=== PATIENT | female | born 1985 | race Caucasian/White ===

== ENCOUNTER 2019-08-25 10:46 | Outpatient (CLI) | payer OTHER, SELFPAY ==
[2019-08-25 11:07] LABS: Hematocrit 38.8 % (37.0-47.0); Hemoglobin 12.3 g/dL (12.0-15.0); Mean Corpuscular HGB Conc 31.7 g/dl (32-36); Mean Corpuscular Hemoglobin 27.8 pg (26-34); Mean Corpuscular Volume 87.8 fl (80-100); Mean Platelet Volume 11.1 fl (7.4-10.4); Platelet Count Result 303 k/mm3 (150-375); Red Blood Count 4.42 M/mm3 (4.2-5.4); Red Cell Distribution Width 13.7 % (11.5-14.5); White Blood Count 7.9 K/mm3 (4.5-10.0)
[2019-08-25 11:42] LABS: Iron 68 ug/dL (37-170)
[2019-08-25 12:13] LABS: Alanine Aminotransferase 16 U/L (4-35); Albumin Level 4.5 g/dL (3.5-5.1); Alkaline Phosphatase 68 U/L (38-126); Aspartate Amino Transferase 25 U/L (14-36); Bilirubin,Total 0.5 mg/dL (0.2-1.3); Blood Urea Nitrogen 10 mg/dL (7-17); Calcium 9.2 mg/dL (8.4-10.2); Carbon Dioxide 27 mmol/L (22-30); Chloride 100 mmol/L (98-107); Estimated Glomerular Filt Rate > 60; Glucose 88 mg/dL (65-105); Potassium 4.2 mmol/L (3.4-5.0); Sodium 139 mmol/L (137-145)
[2019-08-25 13:32] LABS: Folic Acid > 20.0 ng/mL (2.76->20)
[2019-08-25 14:24] LABS: Free T4 Free Thyroxine 1.08 ng/mL (0.78-2.19)
== END 2019-08-25 10:47 | disposition home or self-care (01) ==
LOC: ANHLAB 10:49
PROVIDERS: PCP Family Medicine; Visit Provider Family Medicine
DX: R53.83 Other fatigue (principal); E03.9 Hypothyroidism, unspecified
CPT/HCPCS: 36415; 80053; 82607; 82746; 83540; 84439; 84443; 85027

== ENCOUNTER → 2020-08-10 09:30 | Outpatient (CLI) | payer OTHER, SELFPAY ==
[2020-08-10 21:18] LABS: SARS-CoV-2 RNA PCR Negative
== END ==
PROVIDERS: PCP Family Medicine; Visit Provider Family Medicine
DX: Z20.822 Contact with and (suspected) exposure to COVID-19 (principal); J01.00 Acute maxillary sinusitis, unspecified
CPT/HCPCS: C9803; U0003; U0005

== ENCOUNTER → 2021-03-19 00:01 | Outpatient (CLI) | payer OTHER, SELFPAY ==
[2021-03-19 18:04] LABS: SARS-CoV-2 RNA PCR Negative
== END ==
PROVIDERS: PCP Family Medicine; Visit Provider Family Medicine
DX: R68.89 Other general symptoms and signs (principal); Z20.822 Contact with and (suspected) exposure to COVID-19
CPT/HCPCS: C9803; U0003; U0005

== ENCOUNTER → 2021-03-25 03:09 | Outpatient (CLI) | payer OTHER, SELFPAY ==
[2021-03-25 18:35] LABS: SARS-CoV-2 RNA PCR Negative
== END ==
PROVIDERS: PCP Family Medicine; Visit Provider Family Medicine
DX: Z20.822 Contact with and (suspected) exposure to COVID-19 (principal)
CPT/HCPCS: C9803; U0003; U0005

== ENCOUNTER → 2021-04-06 03:06 | Outpatient (CLI) | payer OTHER, SELFPAY ==
[2021-04-06 19:23] LABS: SARS-CoV-2 RNA PCR Negative
== END ==
PROVIDERS: PCP Family Medicine; Visit Provider Family Medicine
DX: Z20.822 Contact with and (suspected) exposure to COVID-19 (principal)
CPT/HCPCS: C9803; U0003; U0005

== ENCOUNTER 2021-04-14 08:55 | Outpatient (CLI) | payer OTHER, SELFPAY ==
--- NOTE | ~2021-04-14 | MM_ITS ---
MM post biopsy invasive RT DATE: 04/14/2021 13:05 INDICATION: Status post ultrasound-guided biopsy of abnormal mammographic and ultrasound findings in the lower outer quadrant of the right breast TECHNIQUE: Digital MLO and CC exposures following ultrasound-guided biopsy with biopsy marker placeme nt COMPARISON: None FINDINGS: The biopsy marker is present centrally within the area of abnormal density in the lower out er quadrant of the right breast IMPRESSION: Ultrasound-guided biopsy of lower outer quadrant right breast abnormality Reviewed, dictated and finalized at [facility]. Reviewed, dictated and finalized at location C. IMPRESSION: Ultrasound-guided biopsy of lower outer quadrant right breast abnor mality
--- NOTE | ~2021-04-14 | US_ITS ---
EXAMINATION: US GUIDED NEEDLE BIOPSY DATE: 04/14/2021 13:40 CDT INDICATION: Abnormal mammographic and sonographic findings at lower outer quadrant, 7:00, right breas t TECHNIQUE AND FINDINGS: The risks and potential benefits of the procedure were discussed with the patient, and written inform ed consent was obtained. Timeout procedure was performed. After sterile preparation of the right luis st, 1% lidocaine was utilized for local anesthesia. A 14G spring-loaded biopsy gun needle was advanced to the edge of the region of interest from a media l approach utilizing sonographic guidance. A total of three tissue core samples were obtained throug h the lesion. An Inrad tissue marker clip was then placed at the biopsy site. Hemostasis was achieve d. A sterile bandage was applied. The patient tolerated procedure well and there was no evidence of immediate complication. The patien t was given verbal instructions prior to departing from the department. A two view mammogram was perf ormed to document tissue marker clip placement. The tissue samples were submitted to surgical patholo gy for histologic analysis. IMPRESSION: 1. Successful ultrasound guided biopsy of right lower outer quadrant breast with biopsy marker place ment. Please refer to pathology report for histologic analysis. Reviewed, dictated and finalized at [facility]. Reviewed, dictated and finalized at location C. IMPRESSION: 1. Successful ultrasound guided biopsy of right lower outer quadrant breast wi th biopsy marker placement. Please refer to pathology report for histologic anayeli lysis.
--- NOTE | ~2021-04-14 | MMUS_ITS ---
EXAMINATION: MM diagnostic irais BI w taty, US breast RT limited HISTORY: Right breast lump TECHNIQUE: ML, MLO and craniocaudal 3-D tomosynthesis images of both breasts were performed [facility] were [facility]. CAD analysis was submitted and interpreted. High resolution targeted right breast ultrasound at the area of clinical complaint was performed. COMPARISON: 06/12/2019 bilateral diagnostic mammography and limited right breast ultrasound BREAST PARENCHYMAL COMPOSITION: The breasts are heterogeneously dense, which may obscure small masses . FINDINGS: MAMMOGRAPHIC FINDINGS: There is interval asymmetric ill-defined increased density involving a large area of approximately 5 x 5.5 cm dimension in the lower outer right breast. No suspicious mass, architectural distortion, malignant calcification, skin thickening or retraction is noted elsewhere in either breast. ULTRASOUND: Targeted ultrasound at the area of complaint of right breast mass at 7:00 7 cm from the nipple reveal s a large area of irregular ill-defined dense tissue with posterior shadowing IMPRESSION: 1. Suspicious large area of asymmetric increased mammographic density and irregular heterogeneous ech otexture with posterior shadowing in the lower outer quadrant of the right breast 2. Ultrasound-guided biopsy is recommended BI-RADS category 4, suspicious findings. Dr. Tripathi telephoned the report and ultrasound-guided biopsy recommendation of the right breast on at [address] Summer Kuhn Reviewed, dictated and finalized at location A. IMPRESSION: 1. Suspicious large area of asymmetric increased mammographic density and irreg ular heterogeneous echotexture with posterior shadowing in the lower outer quad rant of the right breast 2. Ultrasound-guided biopsy is recommended BI-RADS category 4, suspicious findings. Dr. Tripathi telephoned the report and ultrasound-guided biopsy recommendation of t he right breast on 04/14/2021 [address] Summer Kuhn IMPRESSION: 1. Suspicious large area of asymmetric increased mammographic density and irreg ular heterogeneous echotexture with posterior shadowing in the lower outer quad rant of the right breast 2. Ultrasound-guided biopsy is recommended BI-RADS category 4, suspicious findings. Dr. Tripathi telephoned the report and ultrasound-guided biopsy recommendation of t he right breast on 04/14/20[address] Barraza' nurse Hattie
== END 2021-04-14 08:56 | disposition home or self-care (01) ==
PROVIDERS: PCP Family Medicine; Visit Provider Family Medicine
DX: N63.13 Unspecified lump in the right breast, lower outer quadrant (principal); N60.11 Diffuse cystic mastopathy of right breast; N61.1 Abscess of the breast and nipple
CPT/HCPCS: 19083; 76642; 77062; 77066; 88305; A4648; G0279

== ENCOUNTER 2021-04-19 00:38 | Day surgery (SDC) | payer OTHER, SELFPAY ==
[2021-04-18 11:10] VITALS: BMI 32.3
[2021-04-19] MEDS: LACTATED RINGERS 1,000 ML 30 ML IV CONT (13:06)
[2021-04-19 13:09] VITALS: BP 112/69; PULSE 110; RESP 16; TEMP 36.8; O2SAT 100
--- NOTE | 2021-04-19 13:11 | WPDANESEPPF ---
Anes - Initial Pre Proc Eval Procedure: Operation Date: 04/19/21 13:30 Proposed Procedures p Complex Incision and Drainage Right Breast Abscess - Quynh Dudley MD Date/Time: 04/19/21 13:11 Surgeon: Quynh Dudley MD Pre Op Diagnosis: right breast abscess Patient Data Age: 35 Gender: F Height: 1.63 m Weight: 85.28 kg Allergies Allergy/AdvReac Type Severity Reaction Status Date / Time cephalexin Allergy Unknown Hives Verified 04/19/21 13:13 Home Medications Medication Instructions Recorded Confirmed Type levothyroxine 100 mcg tablet 100 mcg PO DAILY #30 tablet 04/22/20 04/19/21 Rx clindamycin HCl 300 mg capsule 300 mg PO Q6H #40 cap 04/15/21 04/19/21 Rx multivitamin 1 tablet PO DAILY 04/18/21 04/19/21 History Patient hx anesthesia problems: none Family hx anesthesia problems: none Results Review: All pre-operative results and documents have been reviewed as part of the pre-operative evaluation. [facility] Past Medical History Medical History (Updated 04/19/21 @ 13:12 by José Miguel Rodriguez DO) Acute non-recurrent maxillary sinusitis Breast pain, right Chigger infestation Encounter for screening for COVID-19 Exposure to COVID-19 virus Fatigue Hypothyroidism, unspecified Iron deficiency anemia, unspecified Mass of lower outer quadrant of right breast (04/08/21) Stat ultrasound and mammogram suspicious mass 5 x 5.5 cm. Biopsy was negative for malignancy and suggestive of abscess 04/14/2021 Mastitis of right breast unrelated to of (04/04/21) Vitamin B12 deficiency anemia Family History Family History (Updated 10/23/18 @ 10:01 by DOCTOR UNKNOWN) Mother Family history of thyroid disease Patient's mother is in good health Grandparent Diabetes mellitus Acute myocardial infarction Carcinoma of colon Social History Social History Smoking status: Never smoker Alcohol intake: never Substance use: never Substance use type: does not use Additional living arrangements comments: CHILDREN Spiritual care concerns: No Anes - Eval Final PreProcedure Day of Procedure 04/19/21 13:11 Patient weight: obese Heart: regular rate and rhythm Lungs: clear to auscultation and normal air movement Airway: Mallampati scale class II Neurological: alert and oriented Last oral intake: >/= 8 hours ASA classification: II Emergent: no Anesthetic plan: proceed Anesthesia type and monitoring: general LMA and standard monitoring Results Review: All pre-operative results and documents have been reviewed as part of the pre-operative evaluation. Informed Consent: The patient's anesthetic plan and its attendant risks and benefits were discussed with the patient/family/POA. Questions were solicited and answers provided to the satisfaction of the patient/family/POA.
--- NOTE | 2021-04-19 13:31 | WPDHPUPDATE1 ---
History and Physical Update Update Date/Time: 04/19/21 13:31 History and Physical has been reviewed, including an updated exam of the patient. There are NO changes in the patient's condition. Risks, benefits, and alternatives have been discussed and questions answered. Patient agrees to proceed with procedure.
[2021-04-19] MEDS: CLINDAMYCIN 900 MG/D5W 50 ML 900 MG/50 ML PIGGYBACK 50 MG IVPB (14:17)
[2021-04-19] MEDS: LIDO 2%/EPINEPHRINE 1:100,000 20 ML VIAL INFILTRATE (14:37)
--- NOTE | 2021-04-19 14:45 | W.PM.PROC2 ---
Procedure Note - Detailed Date of Procedure 04/19/21 Pre-op Diagnosis right breast abscess, severe mastitis Post-op Diagnosis same Procedure Performed complex incision and drainage right breast abscess measuring approximately 7 x 8 cm Surgeon Quynh Dudley MD Anesthesia MAC and local Indications 35-year-old female presenting with right breast abscess, severe right breast mastitis Findings right breast abscess measuring approximately 7 x 8 cm Description of Procedure The patient was taken to the operating room and placed in the supine position. After adequate induction of MAC anesthesia, the patient was prepped and draped in the normal sterile fashion. A time-out was then done to verify the patient's identity, as well as the procedure being performed. I then localized the area in the right breast overlying the abscess. I then made a incision over the most fluctuant area. This was done approximately at the 7 o'clock position of the breast inferior to the nipple-areolar complex. Upon getting into the breast tissue, there was noted to be severe mastitis and liquified fat. Using blunt dissection, was able to dissect through this area and an abscess cavity was encountered. A copious amount of purulent drainage was noted. This abscess cavity was noted to be approximately 7 cm deep. The cavity itself measured approximately 8 cm. Once I had completely drain this abscess and broke up all loculations, I copiously irrigated the area. No other pathology was noted. I then localized the cavity. The cavity was then packed with 1 in iodoform. Sterile dressing was then placed on the wound. The patient tolerated the procedure well and was alert and awake in the operating room postop. She will be sent to the recovery room in stable condition. Estimated Blood Loss 5 Drains No Packing Yes Pathology none sent Complications No immediate complications Condition stable Disposition PACU
[2021-04-19 14:49] VITALS: BP 96/61; PULSE 100; RESP 12; O2SAT 100
[2021-04-19] MEDS: oxyCODONE HCL (*CRX) 5 MG TAB IR PO (15:12)
[2021-04-19 15:15] VITALS: BP 104/71; PULSE 91; RESP 16
[2021-04-19 15:45] VITALS: BP 109/71; PULSE 86; RESP 18
== END 2021-04-19 15:50 | disposition home or self-care (01) ==
PROVIDERS: PCP Family Medicine; Visit Provider Surgery
PROC: (CPT 19020; principal; 2021-04-19 13:30)
DX: N61.1 Abscess of the breast and nipple (principal); D50.9 Iron deficiency anemia, unspecified; E03.9 Hypothyroidism, unspecified; D51.3 Other dietary vitamin B12 deficiency anemia; E66.9 Obesity, unspecified; Z68.32 Body mass index [BMI] 32.0-32.9, adult
CPT/HCPCS: 19020; 87426; A9270; C9803; J1100; J2250; J2704; J3010; J7120

== ENCOUNTER 2021-04-19 11:03 | Outpatient (CLI) | payer OTHER, SELFPAY ==
[2021-04-19 12:32] LABS: EDCOVIDSCREEN Negative (Negative)
== END 2021-04-19 11:04 | disposition home or self-care (01) ==
LOC: ANHSURGERY 11:05
PROVIDERS: PCP Family Medicine; Visit Provider Surgery
DX: Z01.818 Encounter for other preprocedural examination (principal); Z20.822 Contact with and (suspected) exposure to COVID-19
CPT/HCPCS: 87426; C9803

== ENCOUNTER 2021-04-25 09:52 | Outpatient (CLI) | payer OTHER, SELFPAY ==
[2021-04-25 10:27] LABS: D Dimer 1.77 ug/mL (<0.48)
[2021-04-25 11:34] LABS: LDL Cholesterol Direct 118 mg/dL
[2021-04-25 12:07] LABS: Basophils Absolute Auto 0.1 K/mm3 (0.0-0.1); Basophils Percent Auto 0.6 % (0.2-1.2); Eosinophils Absolute Auto 0.4 K/mm3 (0-0.3); Eosinophils Percent Auto 3.8 % (0-4.4); Hematocrit 34.3 % (37.0-47.0); Hemoglobin 11.1 g/dL (12.0-15.0); Lymphocytes Absolute Auto 2.02 K/mm3 (0.9-3.2); Lymphocytes Percent Auto 20.4 % (18.3-44.2); Mean Corpuscular HGB Conc 32.4 g/dl (32-36); Mean Corpuscular Hemoglobin 26.9 pg (26-34); Mean Corpuscular Volume 83.3 fl (80-100); Mean Platelet Volume 11.1 fl (7.4-10.4); Monocytes Absolute Auto 0.6 K/mm3 (0.1-0.6); Monocytes Percent Auto 6.2 % (2.6-8.5); Neutrophils Absolute Auto 6.7 K/mm3 (1.3-6.7); Platelet Count Result 464 k/mm3 (150-375); Red Blood Count 4.12 M/mm3 (4.2-5.4); Red Cell Distribution Width 14.4 % (11.5-14.5); White Blood Count 9.9 K/mm3 (4.5-10.0)
[2021-04-25 12:11] LABS: Erythrocyte Sedimentation Rate 60 mm/hr (0-20)
[2021-04-25 13:01] LABS: Iron 46 ug/dL (37-170); Percent Iron Saturation 13 % (20-50)
[2021-04-25 14:24] LABS: Alanine Aminotransferase 20 U/L (4-35); Albumin Level 4.4 g/dL (3.5-5.1); Alkaline Phosphatase 77 U/L (38-126); Anion Gap 9 mmol/L (8-16); Aspartate Amino Transferase 21 U/L (14-36); Bilirubin,Total 0.2 mg/dL (0.2-1.3); Blood Urea Nitrogen 7 mg/dL (7-17); Calcium 9.9 mg/dL (8.4-10.2); Carbon Dioxide 31 mmol/L (22-30); Chloride 99 mmol/L (98-107); Cholesterol 196 mg/dL (0-200); Estimated Glomerular Filt Rate > 60; Glucose 102 mg/dL (65-110); HDL Direct 33 mg/dL; Potassium 4.2 mmol/L (3.4-5.0); Sodium 139 mmol/L (137-145); Triglycerides 117 mg/dL (<150)
[2021-04-25 21:26] LABS: Creatine Kinase 42 U/L (30-135)
[2021-04-25 21:29] LABS: Folic Acid 19.8 ng/mL (2.76->20)
[2021-04-29 11:43] LABS: CRP, High Sensitivity >10.0 mg/L (***)
== END 2021-04-25 09:53 | disposition home or self-care (01) ==
PROVIDERS: PCP Family Medicine; Visit Provider Family Medicine
DX: N61.1 Abscess of the breast and nipple (principal); D51.9 Vitamin B12 deficiency anemia, unspecified; D50.9 Iron deficiency anemia, unspecified; E03.9 Hypothyroidism, unspecified; E78.2 Mixed hyperlipidemia; M79.669 Pain in unspecified lower leg
CPT/HCPCS: 36415; 76642; 80053; 80061; 82550; 82607; 82728; 82746; 83540; 83550; 83735; 84443; 85025; 85380; 85652; 86141; 87070; 87077; 87186; 87205

== ENCOUNTER 2021-04-25 11:40 | Outpatient (CLI) | payer OTHER, SELFPAY ==
--- NOTE | ~2021-04-25 | US_ITS ---
US breast RT limited 04/25/2021 12:21 Indication: Right breast abscess. Procedure: High-resolution ultrasound of the right breast in the area of clinical concern laterally. Comparison: 04/14/2021 Findings: There is a complex heterogeneous area of soft tissue in the area of palpable concern with e sebastian involving the interstitium. No discrete drainable fluid collection is identified to suggest absc ess. Impression: 1: Complex heterogeneous breast tissue in the area of clinical concern, consistent with phlegmonous c hange. No discrete drainable fluid collection to suggest abscess. BI-RADS CATEGORY 3-PROBABLY BENIGN FINDING RECOMMENDATION: Recommend follow-up ultrasound in 1-2 months following appropriate clinical therapy. Reviewed, dictated and finalized at location A. Impression: 1: Complex heterogeneous breast tissue in the area of clinical concern, consist ent with phlegmonous change. No discrete drainable fluid collection to suggest abscess. BI-RADS CATEGORY 3-PROBABLY BENIGN FINDING RECOMMENDATION: Recommend follow-up ultrasound in 1-2 months following appropri ate clinical therapy.
== END 2021-04-25 11:41 | disposition home or self-care (01) ==
LOC: ANHIMG 11:46
PROVIDERS: PCP Family Medicine; Visit Provider Family Medicine
DX: N61.1 Abscess of the breast and nipple (principal); R92.8 Other abnormal and inconclusive findings on diagnostic imaging of breast
CPT/HCPCS: 76642

== ENCOUNTER → 2021-04-26 08:32 | Outpatient (CLI) | payer OTHER, SELFPAY ==
[2021-04-26 18:29] LABS: SARS-CoV-2 RNA PCR Negative
== END ==
PROVIDERS: PCP Family Medicine; Visit Provider Family Medicine
DX: R68.89 Other general symptoms and signs (principal); Z20.822 Contact with and (suspected) exposure to COVID-19
CPT/HCPCS: C9803; U0003; U0005

== ENCOUNTER → 2021-05-05 03:05 | Outpatient (CLI) | payer OTHER, SELFPAY ==
[2021-05-05 17:50] LABS: SARS-CoV-2 RNA PCR Negative
== END ==
PROVIDERS: PCP Family Medicine; Visit Provider Family Medicine
DX: Z20.822 Contact with and (suspected) exposure to COVID-19 (principal)
CPT/HCPCS: C9803; U0003; U0005

== ENCOUNTER 2021-05-11 13:29 | Outpatient (CLI) | payer OTHER, SELFPAY ==
[2021-05-11 14:31] LABS: Basophils Percent Auto 0.5 % (0.2-1.2); Eosinophils Absolute Auto 0.3 K/mm3 (0-0.3); Eosinophils Percent Auto 3.5 % (0-4.4); Hematocrit 33.7 % (37.0-47.0); Hemoglobin 10.5 g/dL (12.0-15.0); Immature Granulocyte Absolute 0.03 K/mm3 (0.00-0.031); Immature Granulocyte Percent A 0.4 % (0-0.5); Lymphocytes Absolute Auto 2.28 K/mm3 (0.9-3.2); Lymphocytes Percent Auto 28.8 % (18.3-44.2); Mean Corpuscular HGB Conc 31.2 g/dl (32-36); Mean Corpuscular Hemoglobin 26.3 pg (26-34); Mean Corpuscular Volume 84.3 fl (80-100); Mean Platelet Volume 11.5 fl (7.4-10.4); Monocytes Absolute Auto 0.5 K/mm3 (0.1-0.6); Monocytes Percent Auto 6.8 % (2.6-8.5); Neutrophils Absolute Auto 4.8 K/mm3 (1.3-6.7); Platelet Count Result 328 k/mm3 (150-375); Red Cell Distribution Width 15.2 % (11.5-14.5); White Blood Count 7.9 K/mm3 (4.5-10.0)
[2021-05-11 15:37] LABS: Thyroid Stimulating Hormone 0.668 uIU/mL (0.465-4.680)
[2021-05-11 15:52] LABS: Erythrocyte Sedimentation Rate 68 mm/hr (0-20)
== END 2021-05-11 13:30 | disposition home or self-care (01) ==
LOC: ANHLAB 13:33
PROVIDERS: PCP Family Medicine; Visit Provider Family Medicine
DX: E03.9 Hypothyroidism, unspecified (principal); N61.1 Abscess of the breast and nipple
CPT/HCPCS: 36415; 84443; 85025; 85652; 87070; 87205

== ENCOUNTER 2021-05-31 08:52 | Outpatient (RCR) | payer OTHER, SELFPAY ==
[2021-05-31 15:09] VITALS: BP 92/66; PULSE 99; RESP 20; TEMP 36.2; O2SAT 100
[2021-05-31] MEDS: FAMOTIDINE 20 MG TABLET PO (15:13)
[2021-05-31] MEDS: diphenhydrAMINE HCl CAP 25 MG CAPSULE PO (15:13)
[2021-05-31] MEDS: ACETAMINOPHEN 325 MG TABLET 650 MG PO (15:13)
[2021-05-31 16:11] VITALS: BP 88/56
--- NOTE | 2021-06-01 09:58 | PC.NURSE ---
Called Ms Marie and she is feeling better but very tired and her throat is sore. She has no other questions at this time.
== END 2021-05-31 17:00 ==
LOC: AMCINF 08:52
PROVIDERS: PCP Family Medicine; Visit Provider Internal Medicine Hematology & Oncology
DX: U07.1 COVID-19 (principal)
CPT/HCPCS: A9270; M0243

== ENCOUNTER 2021-06-15 10:32 | Outpatient (CLI) | payer OTHER, SELFPAY ==
--- NOTE | ~2021-06-15 | US_ITS ---
EXAMINATION: US guide abscess drainage DATE: 06/15/2021 15:57 INDICATION: Right breast abscess TECHNIQUE: The procedure and its risks and benefits were discussed with the patient. Potential risks discussed included bleeding and infection. The patient understood the risks and agreed to proceed. Th e skin of the left breast was prepared and draped in sterile fashion. 1% lidocaine was used for local anesthesia. Under ultrasound guidance, an 18-gauge needle was advanced into the right breast abscess . Approximately 2 cc of bloody yellow fluid was aspirated. There were no immediate complications. Flu id was sent for culture. FINDINGS: Ultrasound images demonstrate the needle tip in the right breast abscess with near complete resolutio n post aspiration. IMPRESSION: 1. Successful ultrasound-guided right breast abscess aspiration. Reviewed, dictated and finalized at location A. TRANSMISSION TECHNICIAN
--- NOTE | ~2021-06-15 | US_ITS ---
EXAMINATION: US breast RT limited HISTORY: Abscess of the right breast and nipple TECHNIQUE: Limited right breast ultrasound was performed. COMPARISON: 04/25/2021 FINDINGS: There is an approximately 3.5 x 1.1 cm fluid collection at the 7:00 location 6 cm from the nipple. There is widespread edema of the breast surrounding the fluid collection. No suspicious mass is identified. IMPRESSION: Right breast with surrounding edema. BI-RADS Category 2: Benign finding(s). Reviewed, dictated and finalized at location A. [employer]
== END 2021-06-15 10:33 | disposition home or self-care (01) ==
PROVIDERS: PCP Family Medicine; Visit Provider Surgery
DX: N61.1 Abscess of the breast and nipple (principal)
CPT/HCPCS: 10160; 76642; 76942; 87070; 87075; 87205

== ENCOUNTER 2021-06-30 11:37 | Outpatient (CLI) | payer OTHER, SELFPAY ==
[2021-06-30 12:00] LABS: Basophils Absolute Auto 0.1 K/mm3 (0.0-0.1); Basophils Percent Auto 0.7 % (0.2-1.2); Eosinophils Absolute Auto 0.2 K/mm3 (0-0.3); Hematocrit 35.3 % (37.0-47.0); Immature Granulocyte Absolute 0.02 K/mm3 (0.00-0.031); Immature Granulocyte Percent A 0.3 % (0-0.5); Lymphocytes Absolute Auto 1.74 K/mm3 (0.9-3.2); Lymphocytes Percent Auto 22.9 % (18.3-44.2); Mean Corpuscular HGB Conc 31.2 g/dl (32-36); Mean Corpuscular Hemoglobin 25.9 pg (26-34); Mean Corpuscular Volume 83.1 fl (80-100); Mean Platelet Volume 11.2 fl (7.4-10.4); Monocytes Absolute Auto 0.5 K/mm3 (0.1-0.6); Monocytes Percent Auto 6.1 % (2.6-8.5); Neutrophils Absolute Auto 5.1 K/mm3 (1.3-6.7); Platelet Count Result 420 k/mm3 (150-375); Red Blood Count 4.25 M/mm3 (4.2-5.4); Red Cell Distribution Width 16.1 % (11.5-14.5); White Blood Count 7.6 K/mm3 (4.5-10.0)
[2021-06-30 12:08] LABS: D Dimer 0.75 ug/mL (<0.48)
[2021-06-30 12:13] LABS: Alanine Aminotransferase 15 U/L (4-35); Albumin Level 4.5 g/dL (3.5-5.1); Alkaline Phosphatase 80 U/L (38-126); Anion Gap 10 mmol/L (8-16); Aspartate Amino Transferase 22 U/L (14-36); Bilirubin,Total 0.2 mg/dL (0.2-1.3); Blood Urea Nitrogen 8 mg/dL (7-17); Calcium 9.6 mg/dL (8.4-10.2); Carbon Dioxide 27 mmol/L (22-30); Chloride 104 mmol/L (98-107); Estimated Glomerular Filt Rate > 60; Glucose 110 mg/dL (65-110); Magnesium 1.9 mg/dL (1.6-2.3); Potassium 3.7 mmol/L (3.4-5.0); Sodium 141 mmol/L (137-145)
[2021-06-30 12:17] LABS: Iron 23 ug/dL (37-170)
[2021-06-30 12:26] LABS: Percent Iron Saturation 6 % (20-50)
[2021-06-30 12:51] LABS: Erythrocyte Sedimentation Rate 39 mm/hr (0-20)
[2021-06-30 13:03] LABS: Rheumatoid Factor < 8.6 IU/ML (<12)
[2021-07-03 17:32] LABS: ANA Cascade Screen Negative (Negative)
[2021-07-06 21:26] LABS: CRP, High Sensitivity >10.0 mg/L (***)
== END 2021-06-30 11:38 | disposition home or self-care (01) ==
PROVIDERS: PCP Family Medicine; Visit Provider Family Medicine
DX: D51.9 Vitamin B12 deficiency anemia, unspecified (principal); M25.50 Pain in unspecified joint; N61.1 Abscess of the breast and nipple; R79.89 Other specified abnormal findings of blood chemistry; M79.10 Myalgia, unspecified site; D50.9 Iron deficiency anemia, unspecified
CPT/HCPCS: 36415; 80053; 82607; 82728; 83540; 83550; 83735; 85025; 85380; 85652; 86038; 86141; 86430

== ENCOUNTER 2022-08-03 11:02 | Outpatient (CLI) | payer OTHER, SELFPAY ==
[2022-08-03 11:34] LABS: Basophils Absolute Auto 0.1 K/mm3 (0.0-0.1); Basophils Percent Auto 0.6 % (0.2-1.2); Eosinophils Absolute Auto 0.3 K/mm3 (0-0.3); Eosinophils Percent Auto 4.1 % (0-4.4); Hematocrit 37.3 % (37.0-47.0); Hemoglobin 11.8 g/dL (12.0-15.0); Immature Granulocyte Absolute 0.03 K/mm3 (0.00-0.031); Immature Granulocyte Percent A 0.4 % (0-0.5); Lymphocytes Absolute Auto 1.95 K/mm3 (0.9-3.2); Lymphocytes Percent Auto 23.6 % (18.3-44.2); Mean Corpuscular HGB Conc 31.6 g/dl (32-36); Mean Corpuscular Hemoglobin 26.4 pg (26-34); Mean Corpuscular Volume 83.4 fl (80-100); Mean Platelet Volume 11.5 fl (7.4-10.4); Monocytes Absolute Auto 0.5 K/mm3 (0.1-0.6); Monocytes Percent Auto 5.9 % (2.6-8.5); Neutrophils Absolute Auto 5.4 K/mm3 (1.3-6.7); Neutrophils Percent Auto 65.4 % (45.5-73.1); Platelet Count Result 314 k/mm3 (150-375); Red Blood Count 4.47 M/mm3 (4.2-5.4); Red Cell Distribution Width 14.5 % (11.5-14.5); White Blood Count 8.3 K/mm3 (4.5-10.0)
[2022-08-03 11:47] LABS: Alanine Aminotransferase 17 U/L (6-35); Albumin Level 4.3 g/dL (3.5-5.1); Alkaline Phosphatase 85 U/L (38-126); Anion Gap 7 mmol/L (8-16); Aspartate Amino Transferase 19 U/L (14-36); Bilirubin,Total 0.4 mg/dL (0.2-1.3); Blood Urea Nitrogen 11 mg/dL (7-17); CRP 1.7 mg/dL (<1.0); Calcium 8.5 mg/dL (8.4-10.2); Carbon Dioxide 29 mmol/L (22-30); Chloride 104 mmol/L (98-107); Cholesterol 190 mg/dL (0-200); Estimated Glomerular Filt Rate > 60; Glucose 92 mg/dL (65-110); HDL Direct 38 mg/dL; Magnesium 1.9 mg/dL (1.6-2.3); Potassium 3.8 mmol/L (3.4-5.0); Sodium 140 mmol/L (137-145); Triglycerides 132 mg/dL (<150)
[2022-08-03 11:52] LABS: Rheumatoid Factor < 8.6 IU/ML (<12)
[2022-08-03 11:58] LABS: LDL Cholesterol Direct 108 mg/dL
[2022-08-03 12:21] LABS: Total Triiodothyronine (T3) 1.19 NG/ML (0.97-1.69)
[2022-08-03 12:23] LABS: Iron 22 ug/dL (37-170)
[2022-08-03 12:29] LABS: Erythrocyte Sedimentation Rate 19 mm/hr (0-20)
[2022-08-03 12:35] LABS: Percent Iron Saturation 5 % (20-50)
[2022-08-03 12:48] LABS: Free T4 Free Thyroxine 1.32 ng/mL (0.78-2.19)
[2022-08-03 13:06] LABS: Ferritin 9.93 ng/mL (6.24-137)
[2022-08-06 03:18] LABS: Thyroid Peroxidase Antibodies 2 IU/mL (<9)
[2022-08-07 12:44] LABS: Anti Cyclic Citrullinated Pept <16 Units (<20)
[2022-08-08 18:54] LABS: ANA Cascade Screen Negative (Negative)
== END 2022-08-03 11:03 | disposition home or self-care (01) ==
LOC: ANHLAB 11:03
PROVIDERS: PCP Family Medicine; Visit Provider Family Medicine
DX: D51.9 Vitamin B12 deficiency anemia, unspecified (principal); M79.10 Myalgia, unspecified site; D50.9 Iron deficiency anemia, unspecified; M25.50 Pain in unspecified joint; R79.82 Elevated C-reactive protein (CRP); E78.2 Mixed hyperlipidemia; E03.9 Hypothyroidism, unspecified
CPT/HCPCS: 36415; 80053; 80061; 82607; 82728; 82746; 83540; 83550; 83735; 84439; 84443; 84480; 85025; 85652; 86038; 86140; 86200; 86376; 86430

== ENCOUNTER 2023-02-15 10:27 | Outpatient (CLI) | payer OTHER, SELFPAY ==
[2023-02-15 09:41] LABS: CRP 1.1 mg/dL (<1.0)
[2023-02-15 09:44] LABS: Erythrocyte Sedimentation Rate 28 mm/hr (0-20)
[2023-02-15 09:56] LABS: Basophils Percent Auto 0.6 % (0.2-1.2); Eosinophils Absolute Auto 0.3 K/mm3 (0-0.3); Eosinophils Percent Auto 4.4 % (0-4.4); Hematocrit 38.3 % (37.0-47.0); Hemoglobin 11.9 g/dL (12.0-15.0); Immature Granulocyte Absolute 0.02 K/mm3 (0.00-0.031); Immature Granulocyte Percent A 0.3 % (0-0.5); Lymphocytes Absolute Auto 2.12 K/mm3 (0.9-3.2); Lymphocytes Percent Auto 31.4 % (18.3-44.2); Mean Corpuscular HGB Conc 31.1 g/dl (32-36); Mean Corpuscular Hemoglobin 27.5 pg (26-34); Mean Corpuscular Volume 88.5 fl (80-100); Mean Platelet Volume 11.8 fl (7.4-10.4); Monocytes Absolute Auto 0.6 K/mm3 (0.1-0.6); Monocytes Percent Auto 8.4 % (2.6-8.5); Neutrophils Absolute Auto 3.7 K/mm3 (1.3-6.7); Neutrophils Percent Auto 54.9 % (45.5-73.1); Platelet Count Result 286 k/mm3 (150-375); Red Blood Count 4.33 M/mm3 (4.2-5.4); Red Cell Distribution Width 15.5 % (11.5-14.5); White Blood Count 6.8 K/mm3 (4.5-10.0)
[2023-02-15 12:08] LABS: Iron 53 ug/dL (37-170)
[2023-02-15 12:22] LABS: Percent Iron Saturation 12 % (20-50)
[2023-02-15 12:42] LABS: Ferritin 9.51 ng/mL (6.24-137)
== END 2023-02-15 10:28 | disposition home or self-care (01) ==
LOC: ANHLAB 10:27
PROVIDERS: PCP Family Medicine; Visit Provider Family Medicine
DX: R79.82 Elevated C-reactive protein (CRP) (principal); D50.9 Iron deficiency anemia, unspecified; N61.1 Abscess of the breast and nipple; E03.9 Hypothyroidism, unspecified; D51.9 Vitamin B12 deficiency anemia, unspecified
CPT/HCPCS: 36415; 82607; 82728; 83540; 83550; 84439; 84443; 85025; 85652; 86140

== ENCOUNTER 2023-02-28 11:26 | Outpatient (CLI) | payer OTHER, SELFPAY ==
--- NOTE | ~2023-02-28 | MMUS_ITS ---
EXAMINATION: MM diagnostic irais BI w taty, US breast RT limited HISTORY: Right breast lump at site of prior abscess, reportedly diminished in size recently TECHNIQUE: Bilateral full-field ML, MLO and CC and right spot 3-D tomosynthesis images were performed and synthetic 2-D images were generated. CAD analysis was submitted and interpreted. High resolution targeted lower outer quadrant right breast ultrasound was performed. COMPARISON: 06/15/2021 Limited right breast ultrasound 04/25/2021 Limited right breast ultrasound 04/14/2021 diagnostic right mammogram and limited right breast ultrasound examination 04/14/2021 right ultrasound-guided breast biopsy: Acute and chronic mastitis with acute abscess; no e vidence of neoplasm 06/12/2019 diagnostic bilateral mammogram and limited right breast ultrasound BREAST PARENCHYMAL COMPOSITION: The breasts are heterogeneously dense, which may obscure small masses . FINDINGS: MAMMOGRAPHIC FINDINGS: There is asymmetry and architectural distortion in the lower outer quadrant of the right breast. Otherwise no suspicious mass, architectural distortion, malignant calcification, skin thickening or r etraction of either breast is noted. There is a biopsy marker posteriorly in the outer mid right breast. ULTRASOUND: At the area of clinical complaint of right breast lump at 7 36 cm from the nipple there is evidence o f an approximately 5 x 10 x 10 mm benign-appearing lymph node with relatively uniform thickness and e chogenicity of the cortex and fatty hilum. There is some focal ill-defined posterior shadowing without discrete mass posterior to the lymph node No suspicious focal mass with shadowing is noted.. IMPRESSION: 1. Probable benign lymph node and scarring at site of prior abscess of right breast at 7:30 6 cm from nipple 2. 6 month diagnostic right mammogram and targeted right breast ultrasound follow-up are recommended BI-RADS category 3, probably benign findings. Reviewed, dictated and finalized at location A. IMPRESSION: 1. Probable benign lymph node and scarring at site of prior abscess of right br east at 7:30 6 cm from nipple 2. 6 month diagnostic right mammogram and targeted right breast ultrasound foll ow-up are recommended BI-RADS category 3, probably benign findings.
== END 2023-02-28 11:27 | disposition home or self-care (01) ==
LOC: ANHIMG 11:27
PROVIDERS: PCP Family Medicine; Visit Provider Family Medicine
DX: N63.11 Unspecified lump in the right breast, upper outer quadrant (principal)
CPT/HCPCS: 76642; 77062; 77066; G0279

== ENCOUNTER 2023-03-30 08:13 | Outpatient (CLI) | payer OTHER, SELFPAY ==
--- NOTE | 2023-04-10 18:05 | WPDHOMESLEEP ---
Sleep Study - Home Unattended Date of Study: 03/30/23 Ordering Provider: Armaan Barraza MD Interpreting Provider: Paula Fink, DO Home Sleep Study Type: Watch PAT Height: 1.63 m Weight: 85.729 kg Body Mass Index: 32.4 Neck Circumference (inches): 15 [place]: 6 Reason for Sleep Study Unrefreshing sleep Sleep History The patient is a 37-year-old female with hypothyroidism, GERD, ADHD, and migraine that had a sleep study ordered by her primary care physician for evaluation of on refreshing sleep. The patient denies awakening from sleep short of breath. She rarely awakens at night with heartburn, belching or cough. She constantly snores loudly enough that others complain. She frequently has trouble sleeping when she has a cold. She denies waking up gasping for air throughout the night. She denies having breathing problems at night observed by herself or others. She rarely sweats excessively at night. She denies having heart palpitations or irregular heartbeats during the night. She occasionally falls asleep during the day but never while driving. She denies sleep paralysis and cataplexy. She occasionally has trouble at school or work due to sleepiness. She occasionally experiences vivid dreamlike scenes upon awakening or falling asleep. He denies feeling afraid of going to sleep. She rarely has nightmares and frequently remembers her dreams. She occasionally has thoughts racing through her mind. She occasionally feels sad or depressed. She rarely has anxiety. She occasionally has muscular tension. She denies noticing parts of her body jerk. She denies kicking during the night. She occasionally has crawling and aching feelings in her legs but denies having leg pain during the night. She denies grinding her teeth during sleep and denies awakening with morning jaw pain. She is frequently bothered by pain during the day but rarely awakened by pain during the night. She constantly wakes up feeling stiff in the morning. She constantly wakes up with sore or achy muscles. She frequently wakes up with pain in the neck, spine or other joints. She goes to bed at 11:30 p.m. on weekdays and between midnight to 1:00 a.m. on the weekends. It takes her 15-30 minutes to fall asleep. She wakes up 1-2 times throughout the night to take care of her child and use the restroom. She is able to fall back asleep within a few minutes. She wakes up between 6:30-7 a.m. on weekdays and between 730-8 a.m. the weekends. She typically gets 7 hours of sleep per night. She does not stay in bed more than 20 minutes after waking up in the morning. She currently lives with her 3 children. She denies consuming any caffeinated beverages within 2 hours of bedtime. She denies engaging in physical exercise before bedtime. She will read watch television before falling asleep. She denies taking naps in the afternoon or the evening. She consumes 2 cups of coffee per day. She denies tobacco, alcohol and recreational drug use. 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 Calf pain (~04/21/21) D-dimer elevated at 1.77 on 04/25/2021 with normal exam COVID-19 (05/29/21) rapid COVID test positive 05/29/2021 COVID-19 (12/21/21) 2nd episode of COVID-19 with positive home test 12/21/2021. Elevated C-reactive protein (CRP) High sensitive his T RP was elevated at 10.0 on 04/25/2021 and on 06/30/2021. CRP was slightly elevated at 1.7 on 08/03/2022. CRP normal at 1
[2023-04-10 18:15] VITALS: BMI 32.4
== END 2023-03-30 11:00 | disposition home or self-care (01) ==
LOC: ANHCSM 08:14
PROVIDERS: PCP Family Medicine; Visit Provider Family Medicine
DX: G47.9 Sleep disorder, unspecified (principal); G47.00 Insomnia, unspecified; G47.30 Sleep apnea, unspecified
CPT/HCPCS: 95800

== ENCOUNTER 2023-08-28 10:13 | Outpatient (CLI) | payer OTHER, SELFPAY ==
[2023-08-28 10:39] LABS: Basophils Percent Auto 0.6 % (0.2-1.2); Eosinophils Absolute Auto 0.2 K/mm3 (0-0.3); Hematocrit 38.4 % (37.0-47.0); Hemoglobin 11.8 g/dL (12.0-15.0); Immature Granulocyte Absolute 0.03 K/mm3 (0.00-0.031); Immature Granulocyte Percent A 0.4 % (0-0.5); Lymphocytes Absolute Auto 1.04 K/mm3 (0.9-3.2); Lymphocytes Percent Auto 15.4 % (18.3-44.2); Mean Corpuscular HGB Conc 30.7 g/dl (32-36); Mean Corpuscular Hemoglobin 26.7 pg (26-34); Mean Corpuscular Volume 86.9 fl (80-100); Monocytes Absolute Auto 0.7 K/mm3 (0.1-0.6); Monocytes Percent Auto 9.8 % (2.6-8.5); Neutrophils Absolute Auto 4.8 K/mm3 (1.3-6.7); Neutrophils Percent Auto 70.8 % (45.5-73.1); Platelet Count Result 289 k/mm3 (150-375); Red Blood Count 4.42 M/mm3 (4.2-5.4); Red Cell Distribution Width 14.6 % (11.5-14.5); White Blood Count 6.8 K/mm3 (4.5-10.0)
[2023-08-28 11:14] LABS: Influenza A QL RT-PCR Negative (Negative); Influenza B QL RT-PCR Negative (Negative); RSV RNA, RT-PCR Negative (Negative); SARS-CoV-2 RNA PCR Positive (Negative)
[2023-08-28 11:19] LABS: Hemoglobin A1C 5.7 % (<5.7); Iron 64 ug/dL (37-170)
[2023-08-28 11:59] LABS: Free T4 Free Thyroxine 0.97 ng/mL (0.78-2.19); Percent Iron Saturation 16 % (20-50)
[2023-08-28 12:06] LABS: Total Triiodothyronine (T3) 1.21 NG/ML (0.97-1.69)
[2023-08-28 12:29] LABS: Appearance Urine Clear (Clear); Bilirubin Urine Negative (Negative); Blood Urine Negative (Negative); Color Urine Yellow (Yellow); Glucose Urine UA Negative (Negative); Ketones Urine Negative (Negative); Leukocyte Esterase Ur Negative LEU/UL (NEGATIVE); Nitrate Urine Negative (Negative); Protein Urine Negative (Negative); Specific Grav Ur 1.004 (1.001-1.035); Urobilinogen Urine 0.2 mg/dL (<2.0); pH Urine 5.5 (5.0-9.0)
[2023-08-28 12:32] LABS: Add Urine Microscopic? NO
[2023-08-28 12:33] LABS: Alanine Aminotransferase 18 U/L (6-35); Albumin Level 4.2 g/dL (3.5-5.1); Alkaline Phosphatase 71 U/L (38-126); Anion Gap 5 mmol/L (8-16); Aspartate Amino Transferase 22 U/L (14-36); Bilirubin,Total 0.5 mg/dL (0.2-1.3); Blood Urea Nitrogen 9 mg/dL (7-17); Carbon Dioxide 24 mmol/L (22-30); Chloride 104 mmol/L (98-107); Cholesterol 192 mg/dL (0-200); Estimated Glomerular Filt Rate > 60; Glucose 100 mg/dL (65-110); HDL Direct 39 mg/dL; Potassium 3.9 mmol/L (3.4-5.0); Sodium 133 mmol/L (137-145); Triglycerides 123 mg/dL (<150)
[2023-08-28 12:43] LABS: LDL Cholesterol Direct 124 mg/dL
== END 2023-08-28 10:14 | disposition home or self-care (01) ==
PROVIDERS: PCP Family Medicine; Visit Provider Family Medicine
DX: D50.9 Iron deficiency anemia, unspecified (principal); D51.9 Vitamin B12 deficiency anemia, unspecified; J11.1 Influenza due to unidentified influenza virus with other respiratory manifestations; E03.9 Hypothyroidism, unspecified; L29.9 Pruritus, unspecified; E78.2 Mixed hyperlipidemia
CPT/HCPCS: 36415; 80053; 80061; 81003; 82607; 82728; 83036; 83540; 83550; 84439; 84443; 84480; 85025; 87637

== ENCOUNTER 2023-10-05 00:52 | Day surgery (SDC) | payer OTHER, SELFPAY ==
[2023-10-05 12:18] VITALS: BP 106/72; PULSE 69; RESP 20; TEMP 36.1; O2SAT 99; BMI 33.7
--- NOTE | 2023-10-05 12:20 | WPDANESEPPF ---
Anes - Initial Pre Proc Eval Procedure: Operation Date: 10/05/23 13:30 Proposed Procedures p Colonoscopy - Dylan Artis MD Date/Time: 10/05/23 12:20 Surgeon: Dylan Artis MD Pre Op Diagnosis: Fam hx malignant neoplasm of digestive organs Patient Data Age: 38 Gender: F Height: Weight: Allergies Allergy/AdvReac Type Severity Reaction Status Date / Time cephalexin Allergy Unknown Hives Verified 10/05/23 12:15 Home Medications Medication Instructions Recorded Confirmed Type multivitamin 1 tablet PO DAILY 04/18/21 10/03/23 History cyanocobalamin (vitamin B-12) 1,000 mcg PO DAILY #30 tabs 05/11/21 10/03/23 Rx 1,000 mcg tablet ferrous sulfate 325 mg (65 mg 325 mg PO DAILY #30 tabs 05/11/21 10/03/23 Rx iron) tablet meloxicam 15 mg tablet 15 mg PO DAILY PRN pain #30 tabs 07/30/22 10/03/23 Rx rimegepant 75 mg disintegrating 75 mg PO ONCE PRN migraine headache 05/09/23 10/03/23 History tablet (Nurtec ODT) levothyroxine 100 mcg tablet 100 mcg PO DAILY #30 tabs 06/04/23 10/05/23 Rx azelastine 137 mcg (0.1 %) nasal 1 spray intranasal Q12H PRN 10/03/23 10/05/23 History spray aerosol allergy Patient hx anesthesia problems: none Family hx anesthesia problems: none Results Review: All pre-operative results and documents have been reviewed as part of the pre-operative evaluation. 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 Calf pain (~04/21/21) D-dimer elevated at 1.77 on 04/25/2021 with normal exam COVID-19 (05/29/21) rapid COVID test positive 05/29/2021 COVID-19 (12/21/21) 2nd episode of COVID-19 with positive home test 12/21/2021. Third episode with positive test on 08/28/2023. Elevated C-reactive protein (CRP) High sensitive his T RP was elevated at 10.0 on 04/25/2021 and on 06/30/2021. CRP was slightly elevated at 1.7 on 08/03/2022. CRP normal at 1.1 on 02/15/2023 Elevated d-dimer Elevated fasting glucose (08/28/23) fasting glucose 100 with hemoglobin A1c 5.7 on 08/28/2023. Encounter for screening for COVID-19 Exposure to COVID-19 virus Family history of colon cancer paternal grandfather with colon cancer in his 40s. Fatigue Hypersomnia (~2022) Home sleep study on 03/30/2023 with AHI of 2.0 with oxygen desaturation down to 90% with respiratory disturbance index elevated at 18.5. Consider split night sleep study for further evaluation. Hypothyroidism, unspecified TSH 4.28 on 04/25/2021. TSH therapeutic at 0.668 on 05/11/2021. Thyroid antibodies negative with TSH 1.37, free T4 1.32, T3 total 1.15 on 08/03/2022. TSH 2.78 with free T4 1.2 on 02/15/2023. TSH 1.49, free T4 0.97, T3 total 1.21 on 08/28/2023. Influenza-like illness (08/27/23) Influenza a, B, RSV were negative. Positive COVID 08/28/2023. Iron deficiency anemia, unspecified iron 46 with 13% saturation and ferritin 42.8 with hemoglobin 11.1 on 04/25/2021. hemoglobin 10.5 on 05/11/2021. Iron 22 with 5% saturation , ferritin 9.93, and hemoglobin 11.8 on 08/03/2022. Iron 53 with saturation low at 12% with ferritin 9.51 and hemoglobin 11.9 on 02/15/2023. Hemoglobin 11.8, iron 64 with 16% saturation and ferritin 13.9 on 08/28/2023. Mass of lower outer quadrant of right breast (04/08/21) Stat ultrasound and mammogram suspicious mass 5 x 5.5 cm. Biopsy was negative for malignancy and suggestive of abscess 04/14/2021 Mastitis of right breast unrelated to of breas
[2023-10-05] MEDS: LACTATED RINGERS 1,000 ML 150 ML IV CONT (12:45)
--- NOTE | 2023-10-05 12:47 | PM.HPGS ---
History of Present Illness History of Present Illness Consent: Risks, benefits, and alternatives have been discussed and questions answered. Patient agrees to proceed with procedure. Chief complaint: rectal bleeding Narrative: Mariela Marie is a 38 year old female here for colonoscopy because episode of rectal bleeding, had one when she has in [employer] after had rectal bleeding. 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 Calf pain (~04/21/21) D-dimer elevated at 1.77 on 04/25/2021 with normal exam COVID-19 (05/29/21) rapid COVID test positive 05/29/2021 COVID-19 (12/21/21) 2nd episode of COVID-19 with positive home test 12/21/2021. Third episode with positive test on 08/28/2023. Elevated C-reactive protein (CRP) High sensitive his T RP was elevated at 10.0 on 04/25/2021 and on 06/30/2021. CRP was slightly elevated at 1.7 on 08/03/2022. CRP normal at 1.1 on 02/15/2023 Elevated d-dimer Elevated fasting glucose (08/28/23) fasting glucose 100 with hemoglobin A1c 5.7 on 08/28/2023. Encounter for screening for COVID-19 Exposure to COVID-19 virus Family history of colon cancer paternal grandfather with colon cancer in his 40s. Fatigue Hypersomnia (~2022) Home sleep study on 03/30/2023 with AHI of 2.0 with oxygen desaturation down to 90% with respiratory disturbance index elevated at 18.5. Consider split night sleep study for further evaluation. Hypothyroidism, unspecified TSH 4.28 on 04/25/2021. TSH therapeutic at 0.668 on 05/11/2021. Thyroid antibodies negative with TSH 1.37, free T4 1.32, T3 total 1.15 on 08/03/2022. TSH 2.78 with free T4 1.2 on 02/15/2023. TSH 1.49, free T4 0.97, T3 total 1.21 on 08/28/2023. Influenza-like illness (08/27/23) Influenza a, B, RSV were negative. Positive COVID 08/28/2023. Iron deficiency anemia, unspecified iron 46 with 13% saturation and ferritin 42.8 with hemoglobin 11.1 on 04/25/2021. hemoglobin 10.5 on 05/11/2021. Iron 22 with 5% saturation , ferritin 9.93, and hemoglobin 11.8 on 08/03/2022. Iron 53 with saturation low at 12% with ferritin 9.51 and hemoglobin 11.9 on 02/15/2023. Hemoglobin 11.8, iron 64 with 16% saturation and ferritin 13.9 on 08/28/2023. Mass of lower outer quadrant of right breast (04/08/21) Stat ultrasound and mammogram suspicious mass 5 x 5.5 cm. Biopsy was negative for malignancy and suggestive of abscess 04/14/2021 Mastitis of right breast unrelated to of (04/04/21) Migraine without aura and without status migrainosus, not intractable (~07/29/22) Myalgia Obesity (BMI 30.0-34.9) Pruritus Rectal bleeding (~08/24/23) Seasonal allergic rhinitis UTI (urinary tract infection) Vitamin B12 deficiency anemia vitamin B12 low at 304 with goal greater than 400 on 04/25/2021. level low at 259 with goal greater than 400 with folic acid 12.0 on 08/03/2022. level low at 233 with goal greater than 400 on 02/15/2023. Level low at 271 with folic acid 12.0 and hemoglobin 11.8 on 08/28/2023. Surgical History Surgical History Status post incision and drainage incision and drainage of right breast abscess measuring 7x8 cm on 04/19 Family History Family History Mother Family history of thyroid disease
[2023-10-05 13:14] VITALS: BP 98/65; PULSE 88; RESP 23; O2SAT 99
[2023-10-05 13:24] VITALS: BP 99/59; PULSE 73; RESP 14; O2SAT 97
[2023-10-05 13:34] VITALS: BP 89/63; PULSE 77; RESP 16; O2SAT 98
== END 2023-10-05 13:36 | disposition home or self-care (01) ==
PROVIDERS: PCP Family Medicine; Visit Provider Internal Medicine Gastroenterology
PROC: 0DJD8ZZ Inspection of Lower Intestinal Tract, Via Natural or Artificial Opening Endoscopic (ICD-10-PCS; CPT 45378; principal; 2023-10-05 13:30)
DX: D12.2 Benign neoplasm of ascending colon (principal); D12.5 Benign neoplasm of sigmoid colon; K63.5 Polyp of colon; K64.8 Other hemorrhoids; E03.9 Hypothyroidism, unspecified; D51.3 Other dietary vitamin B12 deficiency anemia; E66.9 Obesity, unspecified; Z68.33 Body mass index [BMI] 33.0-33.9, adult
CPT/HCPCS: 45385; 88305; J2704; J7120